=== PATIENT | male | born 1975 | race African-American/Black ===

== ENCOUNTER 2019-06-18 07:54 | Emergency (ER) | payer BC, OTHER ==
[~2019-06-18] VITALS: Ht 188 cm; Wt 145.2 kg
[~2019-06-18 07:54] MED LIST: AMBEREN PO; NORCO 5-325 TA1 EACH PO
[2019-06-18 07:55] VITALS: BP 165/88
== END 2019-06-18 08:45 | disposition home or self-care (01) ==
LOC: ER 07:54
DX: S76.311A Strain of muscle, fascia and tendon of the posterior muscle group at thigh level, right thigh, initial encounter (principal); X58.XXXA Exposure to other specified factors, initial encounter; Y92.89 Other specified places as the place of occurrence of the external cause; Y93.42 Activity, yoga; Y99.8 Other external cause status